=== PATIENT | female | born 1955 | race Hispanic/Latino ===

== ENCOUNTER 2018-02-20 15:44 | Inpatient (IN) | payer MEDICAID, OTHER ==
[2018-02-20 16:04] VITALS: BMI 19.8
--- NOTE | 2018-02-20 19:12 | ED PDOC ---
Arrival/HPI - General Historian: Patient, Family - History of Present Illness Narrative History of Present Illness (Text): 02/20/18 19:31 62 yo F with no pmhx presenting to ED with fevers/chills, muscle aches since Monday night. Patient states she has been spiking fevers throughout the weekend, with a Tmax of 102 F. Temperature recorded at home today per patient was 101. Patient complains of chills, generalized muscle aches, nausea and decreased appetite. Patient noted to have dry cough during exam, denies any sputum production. No headaches, dizziness, changes in vision, chest pain, palpitations, sob, abdominal pain, vomiting, diarrhea, constipation, dysuria, or changes in stool. PMhx: denies PSHx: denies Allergies: NKDA Home Medications: none Social Hx: no tobacco or drug use, social drinker FHx: noncontributory PMD: None <Rome Ruiz - Last Filed: 02/20/18 20:00> <Aditya Shelton - Last Filed: 02/20/18 23:05> - General Chief Complaint: Dizziness/Lightheaded Time Seen by Provider: 02/20/18 18:55 Past Medical History - Provider Review Nursing Documentation Reviewed: Yes - Infectious Disease Hx of Infectious Diseases: None - Psychiatric Hx Substance Use: No - Surgical History Hx Cataract Extraction: Yes <Rome Ruiz - Last Filed: 02/20/18 20:00> Family/Social History - Physician Review Nursing Documentation Reviewed: Yes Family/Social History: Unknown Family HX Smoking Status: Never Smoked Hx Alcohol Use: Yes Frequency of alcohol use: Socially Hx Substance Use: No <Rome Ruiz - Last Filed: 02/20/18 20:00> Allergies/Home Meds <Rome Ruiz - Last Filed: 02/20/18 20:00> <Aditya Shelton - Last Filed: 02/20/18 23:05> Allergies/Adverse Reactions: Allergies No Known Allergies Allergy (Verified 02/20/18 16:04) Home Medications: Home Meds Medication Instructions Recorded Confirmed No Known Home Med 02/20/18 02/20/18 Review of Systems - Review of Systems Constitutional: Fatigue, Fevers, Other (chills) Eyes: Normal ENT: Normal Respiratory: Normal, Cough (dry). absent: SOB, Sputum, Wheezing Cardiovascular: Normal. absent: Chest Pain, Palpitations, Edema, Calf Pain, SWANN, Syncope Gastrointestinal: Nausea, Appetite Changes (decreased appetite). absent: Abdominal Pain, Stool Changes, Constipation, Diarrhea, Vomiting Genitourinary Female: Normal. absent: Dysuria, Frequency, Hematuria, Urine Output Changes Musculoskeletal: Myalgias (generalized). absent: Arthralgias, Back Pain, Neck Pain, Joint Swelling Skin: Normal. absent: Rash, Pruritis, Skin Lesions, Abscess Neurological: Normal. absent: Headache, Dizziness, Focal Weakness, Gait Changes Endocrine: Normal Hemo/Lymphatic: Normal Psychiatric: Normal <Rome Ruiz - Last Filed: 02/20/18 20:00> Physical Exam Vital Signs Reviewed: Yes Vital Signs Temp Pulse Resp BP Pulse Ox 02/20/18 16:04 99.0 F 111 H 18 111/73 96 Temperature: Febrile Blood Pressure: Normal Pulse: Tachycardic Respiratory Rate: Normal Appearance: Positive for: Ill-Appearing, Other (chills) Pain Distress: None Mental Status: Positive for: Alert and Oriented X 3 - Systems Exam Head: Present: Atraumatic, Normocephalic Pupils: Present: PERRL Extroacular Muscles: Present: EOMI Conjunctiva: Present: Normal Mouth: Present: Moist Mucous Membranes Pharnyx: Present: Normal. No: ERYTHEMA, EXUDATE, TONSILS ENLARGED Neck: Present: Normal Range of Motion. No: Meningeal Signs, MIDLINE TENDERNESS, Paraspinal Tenderness Respiratory/Chest: Present: Clear to Auscultation. No: Respiratory Distress, Accessory Muscle Use, Wheezes, Rales, Rhonchi Cardiovascular: Present: Normal S1, S2, Tachycardic Abdomen: Present: Normal Bowel Sounds. No: Tenderness, Distention, Peritoneal Signs, Rebound, Mass/Organomegaly Back: Present: Normal Inspection Upper Extremity: Present: Normal Inspection, Normal ROM, NORMAL PULSES, Capillary Refill < 2s. No: Cyanosis, Edema, Tenderness, Swelling, Erythema Lower Extremity: Present: Normal Inspection, NORMAL PULSES, Normal ROM, Capillary Refill < 2 s. No: Edema, CALF TENDERNESS, Tenderness, Swelling, Erythema, Deformity Neurological: Present: CN II-XII Intact, Speech Normal Skin: Present: Warm, Dry, Normal Color. No: Rashes Psychiatric: Present: Alert, Oriented x 3, Normal Insight, Normal Concentration <Rome Ruiz - Last Filed: 02/20/18 20:00> Vital Signs Temp Pulse Resp BP Pulse Ox 02/20/18 19:13 103.5 F H 110 H 18 108/70 100 02/20/18 16:04 99.0 F 111 H 18 111/73 96 <Aditya Shelton - Last Filed: 02/20/18 23:05> Medical Decision Making ED Course and Treatment: 02/20/18 19:52 Impression: 62 yo F with no pmhx presenting to ED with fevers/chills, nausea, decreased appetite, dry cough x 4 days Plan: --CBC, CMP --trop --EKG --CXR --UA --tylenol --monitor and disposition 02/20/18 19:53 Patient with continuous chills on examination, decreased appetite Repeat temp: 103.5 rectal Pts meets SIRS criteria with increased temp and tachycardia UA positive CODE sepsis called, per Dr. Shelton - RAD Interpretation Radiology Orders: 02/20/18 19:06 CHEST PORTABLE [RAD] Stat - EKG Interpretation EKG Interpretation (Text): 02/20/18 19:56 Sinus tach @ 101 bpm, possible L atrial enlargement, no STEMI Interpreted by ED Physician: Yes Type: 12 lead EKG - Medication Orders Current Medication Orders: Acetaminophen (Tylenol 325mg Tab) 975 mg PO STAT STA Stop: 02/20/18 19:07 <Rome Ruiz - Last Filed: 02/20/18 20:00> ED Course and Treatment: 02/20/18 20:05 dry cough, RLL infiltrate on my exam +UA w/ LE + nitries sepsis, will rx appreciate consult w/ Hospitalist team: to be admitted to Dr. Harris: Dr. Peterson will see pt. Pt in NAD - Lab Interpretations Lab Results: Lab Results 02/20/18 19:31: Urine Color Light yellow, Urine Appearance Slight-cloudy, Urine pH 6.0, Ur Specific [place] 1.020, Urine Protein 100 H, Urine Glucose (UA) Negative, Urine Ketones Trace H, Urine Blood Moderate H, Urine Nitrate Positive H, Urine Bilirubin Negative, Urine Urobilinogen 0.2, Ur Leukocyte Esterase Small H, Urine RBC 1 - 3, Urine WBC 2 - 5, Ur Epithelial Cells 0 - 2, Urine Bacteria Mod - RAD Interpretation Radiology Orders: 02/20/18 19:06 CHEST PORTABLE [RAD] Stat - Medication Orders Current Medication Orders: Ceftriaxone Sodium (Rocephin 1 Gram Ivpb) 1 gm in 100 mls @ 200 mls/hr IVPB STAT STA; Protocol Stop: 02/20/18 20:15 Azithromycin (Zithromax 500mg In Ns) 500 mg in 250 mls @ 167 mls/hr IVPB STAT STA; Protocol Stop: 02/20/18 21:17 Discontinued Medications Acetaminophen (Tylenol 325mg Tab) 975 mg PO STAT STA Stop: 02/20/18 19:07 <Aditya Shelton - Last Filed: 02/20/18 23:05> Disposition/Present on Arrival - Present on Arrival History of DVT/PE: No History of Uncontrolled Diabetes: No Urinary Catheter: No History of Decub. Ulcer: No History Surgical Site Infection Following: None <Rome Ruiz - Last Filed: 02/20/18 20:00> - Present on Arrival Any Indicators Present on Arrival: No - Disposition Have Diagnosis and Disposition been Completed?: Yes Disposition Time: 20:54 <Aditya Shelton - Last Filed: 02/20/18 23:05> - Disposition Diagnosis: Pneumonia Disposition: HOSPITALIZED Patient Problems: Current Active Problems Problem Status Onset Pneumonia Acute Condition: GOOD
[2018-02-20 19:45] LABS: URINE BILIRUBIN NEGATIVE (NEGATIVE); URINE BLOOD MODERATE (NEGATIVE); URINE GLUCOSE (UA) NEGATIVE (NEGATIVE); URINE LEUKOCYTE ESTERASE SMALL Leu/uL (NEGATIVE); URINE PROTEIN 100 mg/dL (<30 mg/dL); URINE UROBILINOGEN 0.2 E.U./dL (<1 E.U./dL)
[2018-02-20 19:46] LABS: URINE APPEARANCE SLIGHT-CLOUDY (CLEAR); URINE COLOR LIGHT YELLOW (YELLOW)
[2018-02-20] MEDS ORDERED: cefTRIAXone 1 gm 1 GM/100 ML BAG IVPB STA (19:46)
[2018-02-20] MEDS ORDERED: Azithromycin 500MG/NS 250ml 500 MG/250 ML BAG IVPB STA (19:48)
[2018-02-20 20:02] LABS: URINE BACTERIA MOD (NEG); URINE EPITHELIAL CELLS 0 - 2 /hpf (0-5)
[2018-02-20 20:10] LABS: VENOUS BLOOD GAS BASE EXCESS 2.6 mmol/L (0.0-2.0); VENOUS BLOOD GAS PO2 30 mm/Hg (30-55); VENOUS BLOOD PH 7.43 (7.32-7.43)
[2018-02-20 20:13] LABS: BASO # 0.01 K/mm3 (0.0-2.0); BASO % 0.1 % (0.0-3.0); GRAN % 87.1 % (50.0-68.0); LYMPH # 0.5 (1.2-3.4); LYMPH % 3.6 % (22.0-35.0); MEAN CELL VOLUME 91.5 fl (80.0-105.0); MEAN CORPUSCULAR HEMOGLOBIN 31.6 pg (25.0-35.0); MEAN CORPUSCULAR HGB CONC 34.6 g/dl (31.0-37.0); MEAN PLATELET VOLUME 9.6 fl (7.0-11.0); MONO # 1.2 (0.1-0.6); MONO % 9.2 % (1.0-6.0); PLATELET COUNT 217 10^3/uL (120.0-450.0); RBC 4.11 10^6/uL (3.5-6.1); RED CELL DISTRIBUTION WIDTH 12.8 % (11.5-14.5); WHITE BLOOD COUNT 12.9 10^3/ul (4.5-11.0)
[2018-02-20 20:23] LABS: ALB/GLOB RATIO 1.1 (1.1-1.8); ALBUMIN 3.6 g/dL (3.0-4.8); ALT/SGPT 24 U/L (7-56); AST/SGOT 25 U/L (14-36); BLOOD UREA NITROGEN 21 mg/dL (7-21); CALCIUM 8.9 mg/dL (8.4-10.5); GFR NON-AFRICAN AMERICAN 56
[2018-02-20 20:24] LABS: INR 1.08; PARTIAL THROMBOPLASTIN TIME 27.5 Seconds (25.1-36.5); PROTHROMBIN TIME 12.3 SECONDS (9.4-12.5)
[2018-02-20 20:34] LABS: TROPONIN I < 0.01 ng/mL
--- NOTE | 2018-02-20 20:50 | CP.PCM.HP ---
<Gino Silverman - Last Filed: 02/21/18 01:06> History of Present Illness - History of Present Illness History of Present Illness: Gino Silverman, PGy-1 History and Physical for Hospitalist Service CC: Fever and Dizziness HPI: Ms. Sharp is a 62 year old female with PMHx significant for bout of pneumonia 15 years ago at another institution (patient unaware of etiology or treatment at the time) who presents with 3 days of paroxysmal fevers. Patient reports that she has had recurring fevers along with chills since Monday evening and has taken Advil which has helped for a short period of time. Patient also reports associated headache and cough with clear phlegm production at times. Patient denies having received flu shot. Had one episode of bilious vomiting over the weekend that has not returned. Patient denies vision changes but states that she has felt unsteady while ambulating since Monday along with a poor appetite. Patient states she typically has hypotension and thought these symptoms could have been related, thereby delaying her visit to the ED. Patient denies chest pain, abdominal pain, recent travel, rashes, sick contacts and weight changes. Patient takes no medications regularly. 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 Past Patient History - Infectious Disease Hx of Infectious Diseases: None - Past Social History Smoking Status: Never Smoked - PSYCHIATRIC Hx Substance Use: No - SURGICAL HISTORY Hx Cataract Extraction: Yes Meds Allergies/Adverse Reactions: Allergies Allergy/AdvReac Type Severity Reaction Status Date / Time No Known Allergies Allergy Verified 02/20/18 16:04 Physical Exam - Constitutional Appears: Non-toxic, In Acute Distress - Head Exam Head Exam: ATRAUMATIC, NORMOCEPHALIC - Eye Exam Eye Exam: EOMI, Normal appearance Pupil Exam: PERRL - ENT Exam ENT Exam: Mucous Membranes Dry - Neck Exam Neck exam: Positive for: Full Rom, Normal Inspection. Negative for: Tenderness, Thyromegaly Additional comments: negative Brudzinski's sign - Respiratory Exam Respiratory Exam: Clear to Auscultation Bilateral, NORMAL BREATHING PATTERN. absent: Rales, Rhonchi, Wheezes - Cardiovascular Exam Cardiovascular Exam: RRR, +S1, +S2 - GI/Abdominal Exam GI & Abdominal Exam: Normal Bowel Sounds, Soft. absent: Distended, Guarding, Rebound, Tenderness - Extremities Exam Extremities exam: Positive for: full ROM, normal capillary refill, pedal pulses present. Negative for: calf tenderness, joint swelling - Back Exam Back exam: NORMAL INSPECTION. absent: paraspinal tenderness, vertebral tenderness - Neurological Exam Neurological exam: Abnormal Gait, Alert, CN II-XII Intact, Oriented x3 - Psychiatric Exam Psychiatric exam: Normal Affect, Normal Mood - Skin Skin Exam: Dry, Intact, Warm Results - Vital Signs Recent Vital Signs: Last Vital Signs Temp 103.5 F H 02/20/18 19:13 Pulse 110 H 02/20/18 19:13 Resp 18 02/20/18 19:13 BP 108/70 02/20/18 19:13 Pulse Ox 100 02/20/18 19:13 - Labs Result Diagrams: 02/20/18 19:55 02/20/18 19:55 Labs: Laboratory Results - last 24 hr 02/20/18 02/20/18 02/20/18 19:31 19:55 19:55 WBC 12.9 H RBC 4.11 Hgb 13.0 Hct 37.6 MCV 91.5 MCH 31.6 MCHC 34.6 RDW 12.8 Plt Count 217 MPV 9.6 Gran % 87.1 H Lymph % (Auto) 3.6 L [place] % (Auto) 9.2 H Eos % (Auto) 0.0 L Baso % (Auto) 0.1 Gran # 11.20 H Lymph # (Auto) 0.5 L [place] # (Auto) 1.2 H Eos # (Auto) 0.0 Baso # (Auto) 0.01 PT INR APTT pO2 VBG pH VBG pCO2 VBG HCO3 VBG Total CO2 VBG O2 Sat (Calc) VBG Base Excess VBG Potassium Glucose Lactate FiO2 Sodium 132 Potassium 3.8 Chloride 96 L Carbon Dioxide 28 Anion Gap 13 BUN 21 Creatinine 1.0 Est GFR ( Amer) > 60 Est GFR (Non-Af Amer) 56 Random Glucose 111 H Calcium 8.9 Phosphorus 1.8 L Magnesium 2.3 H Total Bilirubin 0.8 AST 25 ALT 24 Alkaline Phosphatase 81 Troponin I < 0.01 Total Protein 6.9 Albumin 3.6 Globulin 3.3 Albumin/Globulin Ratio 1.1 Venous Blood Potassium Urine Color Light yellow Urine Appearance Slight-cloudy Urine pH 6.0 Ur Specific [place] 1.020 Urine Protein 100 H Urine Glucose (UA) Negative Urine Ketones Trace H Urine Blood Moderate H Urine Nitrate Positive H Urine Bilirubin Negative Urine Urobilinogen 0.2 Ur Leukocyte Esterase Small H Urine RBC 1 - 3 Urine WBC 2 - 5 Ur Epithelial Cells 0 - 2 Urine Bacteria Mod 02/20/18 02/20/18 19:55 20:00 WBC RBC Hgb Hct MCV MCH MCHC RDW Plt Count MPV Gran % Lymph % (Auto) [place] % (Auto) Eos % (Auto) Baso % (Auto) Gran # Lymph # (Auto) [place] # (Auto) Eos # (Auto) Baso # (Auto) PT 12.3 INR 1.08 APTT 27.5 pO2 30 VBG pH 7.43 VBG pCO2 41.0 VBG HCO3 27.2 VBG Total CO2 28.5 H VBG O2 Sat (Calc) 65.3 H VBG Base Excess 2.6 H VBG Potassium 3.8 Glucose 111 H Lactate 1.3 FiO2 21.0 Sodium 131.0 L Potassium Chloride 99.0 Carbon Dioxide Anion Gap BUN Creatinine Est GFR ( Amer) Est GFR (Non-Af Amer) Random Glucose Calcium Phosphorus Magnesium Total Bilirubin AST ALT Alkaline Phosphatase Troponin I Total Protein Albumin Globulin Albumin/Globulin Ratio Venous Blood Potassium 3.8 Urine Color Urine Appearance Urine pH Ur Specific [place] Urine Protein Urine Glucose (UA) Urine Ketones Urine Blood Urine Nitrate Urine Bilirubin Urine Urobilinogen Ur Leukocyte Esterase Urine RBC Urine WBC Ur Epithelial Cells Urine Bacteria Assessment & Plan - Assessment and Plan (Free Text) Assessment: Assessment: 52 year old female with previous hx of PNA 15 years ago who presents for paroxysmal fevers, dizziness and unsteady gait. Sepsis, Fever of unknown origin 2/2 Infection of Unknown Etiology: UTI vs PNA vs Flu vs Strep vs abdominal abscess 103.5 temp, tachycardia @ 111 bpm WBC 12.9, 3% bands, Lactate 1.3 EKG Sinus tachycardia @101 bpm, possible L atrial enlargement, no ST or T wave changes Doubt meningitis due to lack of nuchal rigidity CXR findings suggestive of RLL infiltrate, f/u final read F/U CT abdomen/pelvis w/o contrast UA + protein, blood nitrates and leuk esterase but no dysuria, frequency or urgency noted by patient F/U blood and urine cxs ID consult - Dr. Ayala - recommendations appreciated telemonitoring, VS q4 NS @ 150 cc/hr Ceftriaxone 1g IVPB and Azithromycin 500 mg IVPB daily Panculture f/u VBG shock panel f/u AM CBC, CMP, Mg, Phos ID consult- Dr. Ayala for sepsis source coverage Cough F/U influenza AB, mycoplasma, and strep pneumo urine antigen f/u procal Robitussin 200 mg PO TID GI DVT PPx Heparin 5000 SC q8 Protonix 40 mg PO Patient seen, case reviewed and plan approved by attending, Dr. Peterson. Gino Silverman PGY-1 <Viri Peterson - Last Filed: 02/21/18 04:09> Results - Vital Signs Recent Vital Signs: Last Vital Signs Temp 97.0 F L 02/21/18 01:29 Pulse 96 H 02/21/18 02:00 Resp 20 02/21/18 01:29 BP 87/58 L 02/21/18 01:29 Pulse Ox 97 02/21/18 01:29 - Labs Result Diagrams: 02/20/18 19:55 02/20/18 19:55 Labs: Laboratory Results - last 24 hr 02/20/18 02/20/18 02/20/18 19:31 19:55 19:55 WBC 12.9 H RBC 4.11 Hgb 13.0 Hct 37.6 MCV 91.5 MCH 31.6 MCHC 34.6 RDW 12.8 Plt Count 217 MPV 9.6 Gran % 87.1 H Lymph % (Auto) 3.6 L [place] % (Auto) 9.2 H Eos % (Auto) 0.0 L Baso % (Auto) 0.1 Gran # 11.20 H Lymph # (Auto) 0.5 L [place] # (Auto) 1.2 H Eos # (Auto) 0.0 Baso # (Auto) 0.01 Neutrophils % (Manual) 82 H Band Neutrophils % 3 H Lymphocytes % (Manual) 6 L Monocytes % (Manual) 9 H Platelet Evaluation Normal Tear Drop Cells Slight PT INR APTT pO2 VBG pH VBG pCO2 VBG HCO3 VBG Total CO2 VBG O2 Sat (Calc) VBG Base Excess VBG Potassium Glucose Lactate FiO2 Sodium 132 Potassium 3.8 Chloride 96 L Carbon Dioxide 28 Anion Gap 13 BUN 21 Creatinine 1.0 Est GFR ( Amer) > 60 Est GFR (Non-Af Amer) 56 Random Glucose 111 H Calcium 8.9 Phosphorus 1.8 L Magnesium 2.3 H Total Bilirubin 0.8 AST 25 ALT 24 Alkaline Phosphatase 81 Troponin I < 0.01 Total Protein 6.9 Albumin 3.6 Globulin 3.3 Albumin/Globulin Ratio 1.1 Venous Blood Potassium Urine Color Light yellow Urine Appearance Slight-cloudy Urine pH 6.0 Ur Specific [place] 1.020 Urine Protein 100 H Urine Glucose (UA) Negative Urine Ketones Trace H Urine Blood Moderate H Urine Nitrate Positive H Urine Bilirubin Negative Urine Urobilinogen 0.2 Ur Leukocyte Esterase Small H Urine RBC 1 - 3 Urine WBC 2 - 5 Ur Epithelial Cells 0 - 2 Urine Bacteria Mod Influenza Typ A,B (EIA) 02/20/18 02/20/18 02/21/18 19:55 20:00 00:57 WBC RBC Hgb Hct MCV MCH MCHC RDW Plt Count MPV Gran % Lymph % (Auto) [place] % (Auto) Eos % (Auto) Baso % (Auto) Gran # Lymph # (Auto) [place] # (Auto) Eos # (Auto) Baso # (Auto) Neutrophils % (Manual) Band Neutrophils % Lymphocytes % (Manual) Monocytes % (Manual) Platelet Evaluation Tear Drop Cells PT 12.3 INR 1.08 APTT 27.5 pO2 30 VBG pH 7.43 VBG pCO2 41.0 VBG HCO3 27.2 VBG Total CO2 28.5 H VBG O2 Sat (Calc) 65.3 H VBG Base Excess 2.6 H VBG Potassium 3.8 Glucose 111 H Lactate 1.3 FiO2 21.0 Sodium 131.0 L Potassium Chloride 99.0 Carbon Dioxide Anion Gap BUN Creatinine Est GFR ( Amer) Est GFR (Non-Af Amer) Random Glucose Calcium Phosphorus Magnesium Total Bilirubin AST ALT Alkaline Phosphatase Troponin I Total Protein Albumin Globulin Albumin/Globulin Ratio Venous Blood Potassium 3.8 Urine Color Urine Appearance Urine pH Ur Specific [place] Urine Protein Urine Glucose (UA) Urine Ketones Urine Blood Urine Nitrate Urine Bilirubin Urine Urobilinogen Ur Leukocyte Esterase Urine RBC Urine WBC Ur Epithelial Cells Urine Bacteria Influenza Typ A,B (EIA) Negative for flu a/b 02/21/18 02:00 WBC RBC Hgb Hct MCV MCH MCHC RDW Plt Count MPV Gran % Lymph % (Auto) [place] % (Auto) Eos % (Auto) Baso % (Auto) Gran # Lymph # (Auto) [place] # (Auto) Eos # (Auto) Baso # (Auto) Neutrophils % (Manual) Band Neutrophils % Lymphocytes % (Manual) Monocytes % (Manual) Platelet Evaluation Tear Drop Cells PT INR APTT pO2 48 VBG pH 7.33 VBG pCO2 45.0 VBG HCO3 23.7 VBG Total CO2 25.1 VBG O2 Sat (Calc) 85.6 H VBG Base Excess -2.4 L VBG Potassium 3.3 L Glucose 153 H Lactate 0.9 FiO2 21.0 Sodium 136.0 Potassium Chloride 110.0 H Carbon Dioxide Anion Gap BUN Creatinine Est GFR ( Amer) Est GFR (Non-Af Amer) Random Glucose Calcium Phosphorus Magnesium Total Bilirubin AST ALT Alkaline Phosphatase Troponin I Total Protein Albumin Globulin Albumin/Globulin Ratio Venous Blood Potassium 3.3 L Urine Color Urine Appearance Urine pH Ur Specific [place] Urine Protein Urine Glucose (UA) Urine Ketones Urine Blood Urine Nitrate Urine Bilirubin Urine Urobilinogen Ur Leukocyte Esterase Urine RBC Urine WBC Ur Epithelial Cells Urine Bacteria Influenza Typ A,B (EIA) Attending/Attestation - Attestation I have personally seen and examined this patient.: Yes I have fully participated in the care of the patient.: Yes I have reviewed all pertinent clinical information: Yes Notes (Text): 02/21/18 03:45 Pt stated her BP is usually on the lower side. Pt seen with resident by bedside. Case discussed in detail. Agree with documentation,physical findings,assessment and plan of treatment. 02/21/18 04:07
[2018-02-20 20:58] LABS: BAND 3 % (0-2); LYMPHOCYTE 6 % (22.0-35.0); MONOCYTE 9 % (1.0-6.0); NEUTROPHIL 82 % (50.0-70.0)
[2018-02-20 20:59] LABS: PLATELET ESTIMATE NORMAL (NORMAL); TEAR DROP CELLS SLIGHT
[2018-02-20] MEDS ORDERED: Sodium Chloride 0.9% 1,000 ML IV STA (21:01)
[2018-02-20] MEDS ORDERED: Sodium Chloride 0.9% 1,000 ML IV SCH (21:15)
--- NOTE | 2018-02-20 23:17 | CARD ---
APPROVED REPORT Date of service: 02/20/2018 EKG Measurement Heart [id number] <Conclusion> Sinus tachycardia Possible Left atrial enlargement Borderline ECG
--- NOTE | 2018-02-21 01:06 | PCM.SEPTIC ---
<Gino Silverman - Last Filed: 02/21/18 02:14> Sepsis Progress Note - Reassessment Type Date of Evaluation: 02/21/18 Time of Evaluation: 01:05 Reassessment Type: Non-invasive reassessment - Non Invasive Reassessment Were the most recent vital sign reviewed: Yes Vital Sign (Latest): Temp Pulse Resp BP Pulse Ox 99.1 F 96 H 18 100/71 100 02/20/18 23:26 02/21/18 00:17 02/21/18 00:17 02/21/18 00:17 02/21/18 00:17 Cardiovascular: Yes: Regular Rate, Rhythm, Chest Non Tender. No: JVD, Tachycardia, Friction Rub Respiratory: Yes: Normal Breath Sounds, Decreased Breath Sounds, Rales (RLL). No: Accessory Muscle Use, Crackles, Respiratory Distress Capillary Refill: Normal (Less than 2 sec) Skin: Normal Color, Warm, Dry <Viri Peterson - Last Filed: 02/21/18 10:33> Sepsis Progress Note - Non Invasive Reassessment Vital Sign (Latest): Temp Pulse Resp BP Pulse Ox 97.0 F L 96 H 20 87/58 L 97 02/21/18 01:29 02/21/18 02:00 02/21/18 01:29 02/21/18 01:29 02/21/18 01:29 Attending/Attestation - Attestation I have personally seen and examined this patient.: Yes I have fully participated in the care of the patient.: Yes I have reviewed all pertinent clinical information, including history, physical exam and plan: Yes Notes (Text): 02/21/18 03:03 Pt seen with the resident. Discussed findings in detail. Agree with findings.
[2018-02-21] MEDS ORDERED: Pneumococcal 23-Valent Vaccine IM ONE (01:53)
[2018-02-21] MEDS ORDERED: Influenza Vaccine 60 mcg/0.5 mL SYR (4YR UP) IM ONE (01:53)
[2018-02-21 02:26] LABS: VENOUS BLOOD GAS BASE EXCESS -2.4 mmol/L (0.0-2.0); VENOUS BLOOD GAS PO2 48 mm/Hg (30-55); VENOUS BLOOD PH 7.33 (7.32-7.43)
[2018-02-21] MEDS: Pantoprazole 40 mg EC Tab PO SCH (05:35)
[2018-02-21 06:23] LABS: BASO # 0.01 K/mm3 (0.0-2.0); BASO % 0.1 % (0.0-3.0); GRAN # 8.63 (1.4-6.5); GRAN % 86.2 % (50.0-68.0); LYMPH # 0.7 (1.2-3.4); LYMPH % 6.6 % (22.0-35.0); MEAN CELL VOLUME 91.8 fl (80.0-105.0); MEAN CORPUSCULAR HEMOGLOBIN 31.8 pg (25.0-35.0); MEAN CORPUSCULAR HGB CONC 34.6 g/dl (31.0-37.0); MEAN PLATELET VOLUME 10.1 fl (7.0-11.0); MONO # 0.7 (0.1-0.6); MONO % 7.1 % (1.0-6.0); RBC 3.43 10^6/uL (3.5-6.1)
[2018-02-21 06:28] LABS: HEMOGLOBIN 10.9 g/dL (12.0-16.0)
[2018-02-21 07:13] LABS: ALBUMIN 2.9 g/dL (3.0-4.8); ALT/SGPT 28 U/L (7-56); AST/SGOT 34 U/L (14-36); BLOOD UREA NITROGEN 16 mg/dL (7-21); CALCIUM 7.9 mg/dL (8.4-10.5); GFR NON-AFRICAN AMERICAN > 60
[2018-02-21] MEDS ORDERED: Sodium Phosphate 15 MMOLE in Sodium Chloride 0.9% 250 ML IVPB ONE (08:23)
[2018-02-21] MEDS: cefTRIAXone 1 gm 1 GM/100 ML BAG IVPB SCH (09:01)
--- NOTE | 2018-02-21 09:50 | RAD ---
Date of service: 02/20/2018 HISTORY: fevers, r/o focal infection COMPARISON: No prior. FINDINGS: LUNGS: No active pulmonary disease. PLEURA: No significant pleural effusion identified, no pneumothorax apparent. CARDIOVASCULAR: Normal. OSSEOUS STRUCTURES: No significant abnormalities. VISUALIZED UPPER ABDOMEN: Normal. OTHER FINDINGS: None. IMPRESSION: No active disease.
[2018-02-21] MEDS: guaiFENesin 200 mg/10 ml Syrup UD PO SCH ×3 (09:57→17:11)
--- NOTE | 2018-02-21 10:13 | CT ---
Date of service: 02/21/2018 PROCEDURE: CT Chest without contrast HISTORY: r/o pneumonia COMPARISON: None available. TECHNIQUE: Contiguous axial images were obtained through the chest without intravenous contrast enhancement. Sagittal and coronal reconstructions were performed. Radiation dose: Total exam DLP = 166.49 mGy-cm. This CT exam was performed using one or more of the following dose reduction techniques: Automated exposure control, adjustment of the mA and/or kV according to patient size, and/or use of iterative reconstruction technique. FINDINGS: LUNGS: Minimal bibasilar atelectasis. No evidence of pneumonia. MEDIASTINUM: Unremarkable thoracic aorta. No aneurysm. Normal sized heart. Main pulmonary artery unremarkable. No vascular congestion. No lymphadenopathy. No atherosclerotic calcification or mural plaque present. PLEURA: No pleural fluid. No pneumothorax. BONES: No fracture. No destructive lesion. UPPER ABDOMEN: Grossly unremarkable. OTHER FINDINGS: Minimal aortic and coronary artery calcifications IMPRESSION: No acute findings
--- NOTE | 2018-02-21 10:34 | CT ---
Date of service: 02/21/2018 PROCEDURE: CT Abdomen and Pelvis without intravenous contrast HISTORY: Recurring fevers COMPARISON: February 21, 2018 CT thorax TECHNIQUE: Unenhanced. Neither IV nor oral contrast administered Radiation dose: Total exam DLP = 210.93 mGy-cm. This CT exam was performed using one or more of the following dose reduction techniques: Automated exposure control, adjustment of the mA and/or kV according to patient size, and/or use of iterative reconstruction technique. FINDINGS: LOWER THORAX: Unremarkable. LIVER: Unremarkable. No gross lesion or ductal dilatation. GALLBLADDER AND BILE DUCTS: Unremarkable. PANCREAS: Unremarkable. No gross lesion or ductal dilatation. SPLEEN: Unremarkable. ADRENALS: Unremarkable. No mass. KIDNEYS AND URETERS: Unremarkable. No hydronephrosis. No solid mass. VASCULATURE: Unremarkable. No aortic aneurysm. BOWEL: Unremarkable. No obstruction. No gross mural thickening. APPENDIX: Unremarkable. Normal appendix. PERITONEUM: Unremarkable. No free fluid. No free air. LYMPH NODES: Unremarkable. No enlarged lymph nodes. BLADDER: Unremarkable. REPRODUCTIVE: Unremarkable. BONES: No acute fracture. OTHER FINDINGS: None. IMPRESSION: No significant or acute findings to account for/ related to the clinical presentation. Concordant results (preliminary interpretation) provided by [employer]. Procedure Completed: 01:19. Preliminary Report: Dictated and Authenticated: 02:43. Final Interpretation: 10:30. February 21, 2018
[2018-02-21] MEDS: Azithromycin 500MG/NS 250ml 500 MG/250 ML BAG IVPB SCH (11:07)
[2018-02-21] MEDS ORDERED: Potassium Phosphate 3 mmol/ml Inj IV ONE (13:46)
[2018-02-21] MEDS ORDERED: Potassium Phosphate 30 MMOLE in Sodium Chloride 0.9% 250 ML IVPB ONE (14:00)
--- NOTE | 2018-02-21 15:01 | CP.PCM.PN ---
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 seen and examined at bedside this AM No acute events reported ovenright. She is complaining of headaches and dizziness at time of exam; does not voice any difficulty breathing, chest pain, abd pain, nvdc, dysuria /burning/ retention. Remainder of 12 system ROS is negative at this time. Objective - Vital Signs/Intake and Output Vital Signs (last 24 hours): Temp Pulse Resp BP Pulse Ox 99.0 F 114 H 20 112/75 96 02/21/18 04:00 02/21/18 04:00 02/21/18 04:00 02/21/18 04:00 02/21/18 04:00 Intake and Output: 02/21/18 02/21/18 06:59 18:59 Intake Total 320 Output Total 2 Balance 318 - Medications Medications: Current Medications Acetaminophen (Tylenol 325mg Tab) 650 mg PO Q6H PRN PRN Reason: Fever >100.4 F Last Admin: 02/21/18 09:02 Dose: 650 mg Guaifenesin (Robitussin) 200 mg PO TID NORMA Last Admin: 02/21/18 09:57 Dose: 200 mg Heparin Sodium (Porcine) (Heparin) 5,000 units SC Q8 [facility]; Protocol Last Admin: 02/21/18 05:34 Dose: 5,000 units Sodium Chloride (Sodium Chloride 0.9%) 1,000 mls @ 150 mls/hr IV .Q6H40M NORMA Ceftriaxone Sodium (Rocephin 1 Gram Ivpb) 1 gm in 100 mls @ 100 mls/hr IVPB DAILY [facility]; Protocol Last Admin: 02/21/18 09:01 Dose: 100 mls/hr Azithromycin (Zithromax 500mg In Ns) 500 mg in 250 mls @ 167 mls/hr IVPB DAILY [facility]; Protocol Last Admin: 02/21/18 11:07 Dose: 167 mls/hr Potassium Phosphate 30 mmole/ (Sodium Chloride) 260 mls @ 42.5 mls/hr IVPB ONCE ONE Stop: 02/21/18 20:07 Pantoprazole Sodium (Protonix Ec Tab) 40 mg PO 0600 NORMA Last Admin: 02/21/18 05:35 Dose: 40 mg - Labs Labs: 02/21/18 05:30 02/21/18 05:20 PT 12.3 SECONDS (9.4-12.5) 02/20/18 19:55 INR 1.08 02/20/18 19:55 APTT 27.5 Seconds (25.1-36.5) 02/20/18 19:55 - Constitutional Appears: Well, Non-toxic, No Acute Distress - Head Exam Head Exam: ATRAUMATIC, NORMAL INSPECTION, NORMOCEPHALIC - Eye Exam Eye Exam: EOMI, Normal appearance, PERRL. absent: Scleral icterus - ENT Exam ENT Exam: Mucous Membranes Moist, Normal Exam - Respiratory Exam Respiratory Exam: Decreased Breath Sounds (Very mild/minimal ), Rales, NORMAL BREATHING PATTERN - Cardiovascular Exam Cardiovascular Exam: REGULAR RHYTHM, RRR, +S1, +S2. absent: Murmur - GI/Abdominal Exam GI & Abdominal Exam: Soft, Normal Bowel Sounds. absent: Tenderness Additional comments: No suprapubic tenderness presentation - Exam Exam: absent: Bladder Distension - Extremities Exam Extremities Exam: Normal Capillary Refill. absent: Pedal Edema, Tenderness - Neurological Exam Neurological Exam: Alert, Awake, CN II-XII Intact, Oriented x3 - Psychiatric Exam Psychiatric exam: Normal Affect, Normal Mood - Skin Skin Exam: Intact, Normal Color, Warm. absent: Dry Assessment and Plan - Assessment and Plan (Free Text) Assessment: 62F presented [place] [facility] [place] w/ CC of F+Chills found to have Tmax 103, and Hr 111 admitted for workup/management of sepsis w/ fever of unknown origin. At this time the patient has tolerated IVF well and states some improvement relative to initial presentation. Source of infection still pending at this time; we will treat the patient empirically and monitor for worsening of s/s of infection. SEPSIS + Fever Unknown Origin; Etiology unknown - UTI vs PNA most likely; Abdominal Abscess less likely. Afebrile overnight w/ resolving leukocytosis; Lactate wnl UA: Moderate bacteria, w/ 2-5 leukocytes, Nitrate+ UCX pending CXR: wnl; CT Chest as interpreted at - some consolidation Procal Elevated Flu negative CTAP: No acute findings HIV negative, Urine AGs pending Cultures: Blood, urine, sputum pending Azithromycin, Rocephin ID Dr. Lutz on board, appreciate reccs Cough F/U influenza AB, mycoplasma, and strep pneumo urine antigen f/u procal Robitussin 200 mg PO TID GI DVT PPx Heparin 5000 SC q8 Protonix 40 mg PO Patient was seen, examined, and discussed w/ attending physician Dr. Harris. Willie Payton DO PGY1 Internal Medicine <Madison Harris - Last Filed: 02/23/18 15:10> Objective - Vital Signs/Intake and Output Vital Signs (last 24 hours): Temp Pulse Resp BP Pulse Ox 97.8 F 60 20 100/69 96 02/23/18 06:00 02/23/18 06:00 02/23/18 06:00 02/23/18 06:00 02/23/18 06:00 Intake and Output: 02/23/18 02/23/18 06:59 18:59 Intake Total 240 Balance 240 - Medications Medications: Current Medications Acetaminophen (Tylenol 325mg Tab) 650 mg PO Q6H PRN PRN Reason: Fever >100.4 F Last Admin: 02/21/18 19:23 Dose: 650 mg Alprazolam (Xanax) 0.5 mg PO Q12H PRN; Protocol PRN Reason: Anxiety Last Admin: 02/22/18 13:58 Dose: 0.5 mg Diphenhydramine HCl (Benadryl) 25 mg PO HS PRN PRN Reason: Insomnia Last Admin: 02/22/18 23:58 Dose: 25 mg Guaifenesin (Robitussin) 200 mg PO TID NORMA Last Admin: 02/22/18 17:38 Dose: 200 mg Heparin Sodium (Porcine) (Heparin) 5,000 units SC Q8 [facility]; Protocol Last Admin: 02/23/18 05:22 Dose: 5,000 units Levofloxacin (Levaquin) 500 mg PO DAILY [facility]; Protocol Stop: 02/28/18 10:01 Pantoprazole Sodium (Protonix Ec Tab) 40 mg PO 0600 NORMA Last Admin: 02/23/18 05:22 Dose: 40 mg - Labs Labs: 02/23/18 06:30 02/23/18 06:30 PT 12.3 SECONDS (9.4-12.5) 02/20/18 19:55 INR 1.08 02/20/18 19:55 APTT 27.5 Seconds (25.1-36.5) 02/20/18 19:55 Attending/Attestation - Attestation I have personally seen and examined this patient.: Yes I have fully participated in the care of the patient.: Yes I have reviewed all pertinent clinical information, including history, physical exam and plan: Yes Notes (Text): Attending note; Patient is examined with resident. Patient is alert and awake. Had low-grade temperature last night. Currently afebrile and nontoxic. Complaining of mild cough. Tolerating diet well. Patient is a 62-year-old female with no significant past medical history is admitted with fevers and chills. Patient is complaining of generalized malaise and cough. 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 Rapid flu is negative. Chest x-rays negative. Started on IV levofloxacin. Marie culture ordered., ID evaluation appreciated. Monitor closely for fever trend. Ambulating as needed. Patient will be referred [place] [facility] [place] upon discharge.
[2018-02-21] MEDS: Sodium Chloride 0.9% 1,000 ML IV SCH ×4 (18:05→19:18)
[2018-02-21] MEDS: DiphenhydrAMINE 12.5 mg/5 ml LIQ UD (5 ml) PO PRN (21:20)
--- NOTE | 2018-02-21 22:05 | CON ---
DATE: 02/21/2018 The patient is in seen earlier today in room 262, bed 1. CHIEF COMPLAINT: Fever x3 days. HISTORY OF PRESENT ILLNESS: This is a 62-year-old female with no significant past medical history. She states that she has been having fevers x3 days. She has had cough. The cough is nonproductive. There is no chest pain. There is mild shortness of breath. No abdominal pain. No diarrhea. No constipation. No dysuria or frequency. No headaches or blurred vision. No neck pain. No rash or joint pain. REVIEW OF SYSTEMS: A 12-point review systems performed. PAST MEDICAL HISTORY: Noncontributory. PAST SURGICAL HISTORY: Significant for a cataract surgery. ALLERGIES: SHE HAS NO KNOWN ALLERGIES. She takes no medications at home. She lives by herself, has no pets, and her last travel was [facility] one year ago for her daughter's wedding. She is from her . No one else is sick around her. 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 She is exposed to children. PHYSICAL EXAMINATION: On examination, she is in bed, awake, answering questions appropriately. Her temperature is 103.5, a heart rate of 114, respiratory rate of 20, blood pressure is 87/58. Examination of HEENT is unremarkable. Neck is supple. Lungs have decreased breath sounds. Heart exam, normal S1, S2. Abdomen examination is soft, nontender. No rebound or guarding. Laboratory examination reveals a white count of 12,900, platelets of 217, 87 granulocytosis. There is 3% bandemia, 9% monocytosis. Coagulation is noted. Chemistries reveals a BUN of 16, creatinine of 0.8. Random glucose is 111. Urinalysis, wbc's 2 to 5, moderate bacteria, there is protein. Serology for influenza negative. The patient had a CAT scan of the abdomen and pelvis, that is pending. Chest x-ray which is pending, however, a review of the x-ray appears to have infiltrates. ASSESSMENT AND PLAN: This is a 62-year-old female with no significant past medical history, presenting with hypotension, fevers, tachycardia, and with severe sepsis, bilateral community-acquired pneumonia. We will treat the patient with ceftriaxone and Zithromax, QTC is 433, and we will order a procalcitonin, blood culture, urine cultures, sputum cultures, MRSA screen, HIV test, urine for Legionella antigen, Strep antigen, and CAT scan of the chest. We will check on her chest x-ray and initial diagnostic and laboratory testing, and make further recommendations. Jayson Lutz MD [facility] # [id number]
[2018-02-21] MEDS ORDERED: Sodium Chloride 0.9% 500 ML IV STA (23:01)
[2018-02-22 01:16] LABS: VENOUS BLOOD GAS BASE EXCESS -1.5 mmol/L (0.0-2.0); VENOUS BLOOD GAS PO2 31 mm/Hg (30-55); VENOUS BLOOD PH 7.37 (7.32-7.43)
[2018-02-22] MEDS: Pantoprazole 40 mg EC Tab PO SCH (05:27)
[2018-02-22 06:55] LABS: BASO # 0.01 K/mm3 (0.0-2.0); BASO % 0.1 % (0.0-3.0); EOS % 0.1 % (1.5-5.0); GRAN # 5.42 (1.4-6.5); GRAN % 73.3 % (50.0-68.0); LYMPH # 1.2 (1.2-3.4); LYMPH % 16.6 % (22.0-35.0); MEAN CELL VOLUME 92.3 fl (80.0-105.0); MEAN CORPUSCULAR HGB CONC 33.6 g/dl (31.0-37.0); MEAN PLATELET VOLUME 10.2 fl (7.0-11.0); MONO # 0.7 (0.1-0.6); MONO % 9.9 % (1.0-6.0); RBC 3.23 10^6/uL (3.5-6.1); RED CELL DISTRIBUTION WIDTH 13.4 % (11.5-14.5); WHITE BLOOD COUNT 7.4 10^3/ul (4.5-11.0)
[2018-02-22 07:03] LABS: BARBITURATES, UR NEGATIVE (NEGATIVE); BENZODIAZEPINES, UR NEGATIVE (NEGATIVE); OPIATES, UR NEGATIVE (NEGATIVE); PHENCYCLIDINE, UR NEGATIVE (NEGATIVE)
[2018-02-22 07:18] LABS: ALB/GLOB RATIO 0.9 (1.1-1.8); ALBUMIN 2.7 g/dL (3.0-4.8); ALT/SGPT 47 U/L (7-56); AST/SGOT 53 U/L (14-36); BLOOD UREA NITROGEN 7 mg/dL (7-21); CALCIUM 7.5 mg/dL (8.4-10.5); GFR NON-AFRICAN AMERICAN > 60
[2018-02-22] MEDS ORDERED: Potassium Chloride 20 mEq ER Tab PO STA (07:32)
[2018-02-22] MEDS ORDERED: Sodium Chloride 0.9% 500 ML IV STA (07:39)
[2018-02-22] MEDS: cefTRIAXone 1 gm 1 GM/100 ML BAG IVPB SCH (10:33)
[2018-02-22] MEDS: guaiFENesin 200 mg/10 ml Syrup UD PO SCH ×3 (10:33→17:38)
[2018-02-22] MEDS: Sodium Chloride 0.9% 1,000 ML IV SCH (10:34)
--- NOTE | 2018-02-22 10:35 | PN ---
DATE: 02/22/2018 SUBJECTIVE: The patient is seen earlier today, in no acute distress, nontoxic. No fevers and chills. PHYSICAL EXAMINATION: VITAL SIGNS: On exam, temperature is 98, T-max yesterday was 101.7, although temperature is in the downward trend and the blood pressure is 94/56, respiratory rate of 20, heart rate of 93. HEENT: Examination of HEENT is unremarkable. NECK: Supple. LUNGS: Have decreased breath sounds. HEART: Normal S1, S2. ABDOMEN: Soft. LABORATORY DATA: Laboratory examination reveals the white count of 7.4, hemoglobin of 10, platelets of 201, BUN of 7, creatinine of 0.7. Urinalysis is noted. Influenza is negative. Blood cultures are negative. Urine cultures are negative. CAT scan of the abdomen and pelvis is negative. CAT scan of the chest is reported to be negative. The patient's HIV is pending. Strep antigen is pending. Influenza is also repeat one is pending. Urine for Legionella antigen has also been ordered, not collected. ASSESSMENT AND PLAN: A 62-year-old female with past medical history is noncontributory, who was admitted with hypotension, fever, tachycardia and severe sepsis from bilateral community-acquired pneumonia, on ceftriaxone and Zithromax. We will follow closely with you. We will change the Zithromax to p.o. Currently on ceftriaxone. We will check on the final culture results. The patient still looks washed out and etiology of this is not entirely clear. Jayson Lutz MD
[2018-02-22] MEDS: Azithromycin 500MG/NS 250ml 500 MG/250 ML BAG IVPB SCH (12:21)
--- NOTE | 2018-02-22 15:00 | CP.PCM.PN ---
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 Denied any chest pain or worsening cough. Remainder of 12 system ROS is negative Objective - Vital Signs/Intake and Output Vital Signs (last 24 hours): Temp Pulse Resp BP Pulse Ox 98.0 F 95 H 18 100/64 95 02/22/18 12:00 02/22/18 14:00 02/22/18 12:00 02/22/18 12:00 02/22/18 05:55 Intake and Output: 02/22/18 02/22/18 06:59 18:59 Intake Total 4510 Output Total 0 Balance 4510 - Medications Medications: Current Medications Acetaminophen (Tylenol 325mg Tab) 650 mg PO Q6H PRN PRN Reason: Fever >100.4 F Last Admin: 02/21/18 19:23 Dose: 650 mg Alprazolam (Xanax) 0.5 mg PO Q12H PRN; Protocol PRN Reason: Anxiety Last Admin: 02/22/18 13:58 Dose: 0.5 mg Diphenhydramine HCl (Benadryl) 25 mg PO HS PRN PRN Reason: Insomnia Last Admin: 02/21/18 21:20 Dose: 25 mg Guaifenesin (Robitussin) 200 mg PO TID NORMA Last Admin: 02/22/18 13:22 Dose: 200 mg Heparin Sodium (Porcine) (Heparin) 5,000 units SC Q8 [facility]; Protocol Last Admin: 02/22/18 13:22 Dose: 5,000 units Ceftriaxone Sodium (Rocephin 1 Gram Ivpb) 1 gm in 100 mls @ 100 mls/hr IVPB DAILY [facility]; Protocol Last Admin: 02/22/18 10:33 Dose: 100 mls/hr Azithromycin (Zithromax 500mg In Ns) 500 mg in 250 mls @ 167 mls/hr IVPB DAILY [facility]; Protocol Last Admin: 02/22/18 12:21 Dose: 167 mls/hr Pantoprazole Sodium (Protonix Ec Tab) 40 mg PO 0600 NORMA Last Admin: 02/22/18 05:27 Dose: 40 mg - Labs Labs: 02/22/18 05:30 02/22/18 05:30 PT 12.3 SECONDS (9.4-12.5) 02/20/18 19:55 INR 1.08 02/20/18 19:55 APTT 27.5 Seconds (25.1-36.5) 02/20/18 19:55 - Constitutional Appears: Well, Non-toxic, No Acute Distress - Head Exam Head Exam: ATRAUMATIC, NORMAL INSPECTION, NORMOCEPHALIC - Eye Exam Eye Exam: EOMI, Normal appearance, PERRL. absent: Scleral icterus - ENT Exam ENT Exam: Mucous Membranes Moist, Normal Exam - Respiratory Exam Respiratory Exam: Rales in RML/RLL and Left mid/lower lung hinojosa - Cardiovascular Exam Cardiovascular Exam: REGULAR RHYTHM, RRR, +S1, +S2. absent: Murmur - GI/Abdominal Exam GI & Abdominal Exam: Soft, Normal Bowel Sounds. absent: Tenderness Additional comments: No suprapubic tenderness presentation - Exam Exam: absent: Bladder Distension - Extremities Exam Extremities Exam: Normal Capillary Refill. absent: Pedal Edema, Tenderness - Neurological Exam Neurological Exam: Alert, Awake, CN II-XII Intact, Oriented x3 - Psychiatric Exam Psychiatric exam: Normal Affect, Normal Mood - Skin Skin Exam: Intact, Normal Color, Warm. absent: Dry Assessment and Plan - Assessment and Plan (Free Text) Assessment: 62F presented [place] [facility] w/ CC of F+Chills found to have Tmax 103, and Hr 111 admitted for workup/management of sepsis w/ fever of unknown origin. Patient is continued on broad spectrum antibiotics at this time; her symptoms are stable however does spike fevers at night. In setting of an elevated procal and questionable findings on CTAP we will consider the patient to have a PNA. Other sources are still not completely ruled out however they are likely. SEPSIS + Fever Unknown Origin; Etiology unknown - UTI vs PNA most likely; Abdominal Abscess less likely. Patient spiked a fever last night; with low blood pressure; however lactate was wnl; her wbcs are trending down, and she is known to be hypotensive. Denied any dizziness at the time; She was bolused 500ccs Her UA shows moderate bacteria w/ 2-5 leukocytes; her CXR and CT were officially read as normal; however there is some consolidative changes appreciated in bilateral lower lobes; her CTAP shows no abscess. We will c/w Rocephin and Azithromycin at this time. HIV negative, Urine AGs pending Blood urine sputum cx negative ID Dr. Lutz on board, appreciate reccs Cough- Dry Cough Most likely Viral? - Influenza AB negative Robitussin 200 mg PO TID GI DVT PPx Heparin 5000 SC q8 Protonix 40 mg PO Patient was seen, examined, and discussed w/ attending physician Dr. Harris. Willie Payton DO PGY1 Internal Medicine <Madison Harris - Last Filed: 02/23/18 15:13> Objective - Vital Signs/Intake and Output Vital Signs (last 24 hours): Temp Pulse Resp BP Pulse Ox 97.8 F 72 20 100/69 96 02/23/18 06:00 02/23/18 10:00 02/23/18 06:00 02/23/18 06:00 02/23/18 06:00 Intake and Output: 02/23/18 02/23/18 06:59 18:59 Intake Total 240 796 Balance 240 796 - Labs Labs: 02/23/18 06:30 02/23/18 06:30 PT 12.3 SECONDS (9.4-12.5) 02/20/18 19:55 INR 1.08 02/20/18 19:55 APTT 27.5 Seconds (25.1-36.5) 02/20/18 19:55 Attending/Attestation - Attestation I have personally seen and examined this patient.: Yes I have fully participated in the care of the patient.: Yes I have reviewed all pertinent clinical information, including history, physical exam and plan: Yes Notes (Text): 02/23/18 15:11 Attending note; Patient is examined with resident. Patient is alert and awake. Currently afebrile and nontoxic. Complaining of mild cough. Tolerating diet well. Patient is a 62-year-old female with no significant past medical history is admitted with fevers and chills. Patient is complaining of generalized malaise and cough. Patient works in the [employer] system. Rapid flu is negative. Chest x-rays negative. Chest CT showed bibasilar atelectasis. No significant consolidation. CT abdomen and pelvis is negative. Started on IV levofloxacin. Blood culture is negative. Urine culture is negative. MRSA is negative. ID evaluation appreciated. HIV, Legionella negative. Patient will be referred to [facility] [place] upon discharge. 02/23/18 15:13
[2018-02-22 16:56] VITALS: RESP 20
[2018-02-22] MEDS: DiphenhydrAMINE 12.5 mg/5 ml LIQ UD (5 ml) PO PRN (23:58)
[2018-02-23] MEDS: Pantoprazole 40 mg EC Tab PO SCH (05:22)
[2018-02-23 06:10] VITALS: BP 100/69; TEMP 97.8; O2SAT 96
[2018-02-23 07:07] LABS: BASO # 0.02 K/mm3 (0.0-2.0); BASO % 0.3 % (0.0-3.0); EOS # 0.1 (0.0-0.7); EOS % 1.3 % (1.5-5.0); GRAN # 4.05 (1.4-6.5); GRAN % 67.5 % (50.0-68.0); HEMOGLOBIN 10.1 g/dL (12.0-16.0); LYMPH # 1.3 (1.2-3.4); LYMPH % 21.6 % (22.0-35.0); MEAN CELL VOLUME 91.7 fl (80.0-105.0); MEAN CORPUSCULAR HEMOGLOBIN 31.1 pg (25.0-35.0); MEAN CORPUSCULAR HGB CONC 33.9 g/dl (31.0-37.0); MEAN PLATELET VOLUME 9.6 fl (7.0-11.0); MONO # 0.6 (0.1-0.6); MONO % 9.3 % (1.0-6.0); RBC 3.25 10^6/uL (3.5-6.1); RED CELL DISTRIBUTION WIDTH 13.6 % (11.5-14.5)
[2018-02-23 07:09] LABS: ALBUMIN 2.8 g/dL (3.0-4.8); BLOOD UREA NITROGEN 6 mg/dL (7-21); CALCIUM 8.5 mg/dL (8.4-10.5); GFR NON-AFRICAN AMERICAN > 60
[2018-02-23 07:10] LABS: ALB/GLOB RATIO 0.9 (1.1-1.8); ALT/SGPT 47 U/L (7-56); AST/SGOT 45 U/L (14-36)
[2018-02-23] MEDS: guaiFENesin 200 mg/10 ml Syrup UD PO SCH (09:41)
[2018-02-23] MEDS ORDERED: levoFLOXacin 500 MG TAB PO SCH (10:00)
[2018-02-23 10:39] VITALS: PULSE 72
--- NOTE | 2018-02-23 12:45 | CP.PCM.DIS ---
<FitoWillie - Last Filed: 02/24/18 17:52> Provider - Provider Date of Admission: 02/20/18 20:52 Attending physician: Madison Harris MD Primary care physician: ARMAAN PRIMARY CARE PROVIDER Consults: Infectious Disease - [place] Time Spent in preparation of Discharge (in minutes): 45 Diagnosis - Discharge Diagnosis (1) Sepsis Status: Acute (2) Fever, unknown origin Status: Acute (3) Cough Status: Acute (4) Pneumonia Status: Acute Hospital Course - Lab Results Lab Results: Micro Results 02/21/18 23:12 Naris MRSA Culture (Admit) - Final MRSA NOT DETECTED 02/20/18 19:55 Blood Blood Culture - Preliminary NO GROWTH AFTER 48 HOURS 02/20/18 19:30 Blood Blood Culture - Preliminary NO GROWTH AFTER 48 HOURS 02/21/18 19:40 Blood Blood Culture - Preliminary NO GROWTH AFTER 24 HOURS 02/21/18 19:15 Blood Blood Culture - Preliminary NO GROWTH AFTER 24 HOURS 02/20/18 23:10 Urine Urine Culture - Final No Growth (<1,000 CFU/ML) Most Recent Lab Values WBC 6.0 10^3/ul (4.5-11.0) 02/23/18 06:30 RBC 3.25 10^6/uL (3.5-6.1) L 02/23/18 06:30 Hgb 10.1 g/dL (12.0-16.0) L 02/23/18 06:30 Hct 29.8 % (36.0-48.0) L 02/23/18 06:30 MCV 91.7 fl (80.0-105.0) 02/23/18 06:30 MCH 31.1 pg (25.0-35.0) 02/23/18 06:30 MCHC 33.9 g/dl (31.0-37.0) 02/23/18 06:30 RDW 13.6 % (11.5-14.5) 02/23/18 06:30 Plt Count 237 10^3/uL (120.0-450.0) 02/23/18 06:30 MPV 9.6 fl (7.0-11.0) 02/23/18 06:30 Gran % 67.5 % (50.0-68.0) 02/23/18 06:30 Lymph % (Auto) 21.6 % (22.0-35.0) L 02/23/18 06:30 [place] % (Auto) 9.3 % (1.0-6.0) H 02/23/18 06:30 Eos % (Auto) 1.3 % (1.5-5.0) L 02/23/18 06:30 Baso % (Auto) 0.3 % (0.0-3.0) 02/23/18 06:30 Gran # 4.05 (1.4-6.5) 02/23/18 06:30 Lymph # (Auto) 1.3 (1.2-3.4) 02/23/18 06:30 [place] # (Auto) 0.6 (0.1-0.6) 02/23/18 06:30 Eos # (Auto) 0.1 (0.0-0.7) 02/23/18 06:30 Baso # (Auto) 0.02 K/mm3 (0.0-2.0) 02/23/18 06:30 Neutrophils % (Manual) 82 % (50.0-70.0) H 02/20/18 19:55 Band Neutrophils % 3 % (0-2) H 02/20/18 19:55 Lymphocytes % (Manual) 6 % (22.0-35.0) L 02/20/18 19:55 Monocytes % (Manual) 9 % (1.0-6.0) H 02/20/18 19:55 Platelet Evaluation Normal (NORMAL) 02/20/18 19:55 Tear Drop Cells Slight 02/20/18 19:55 PT 12.3 SECONDS (9.4-12.5) 02/20/18 19:55 INR 1.08 02/20/18 19:55 APTT 27.5 Seconds (25.1-36.5) 02/20/18 19:55 pO2 31 mm/Hg (30-55) 02/21/18 23:30 VBG pH 7.37 (7.32-7.43) 02/21/18 23:30 VBG pCO2 41.0 (40-60) 02/21/18 23:30 VBG HCO3 23.7 mmol/l (21-28) 02/21/18 23:30 VBG Total CO2 25.0 mmol.L (22-28) 02/21/18 23:30 VBG O2 Sat (Calc) 65.1 % (40-65) H 02/21/18 23:30 VBG Base Excess -1.5 mmol/L (0.0-2.0) L 02/21/18 23:30 VBG Potassium 3.7 mmol/L (3.6-5.2) 02/21/18 23:30 Sodium 138.0 mmol/L (132-148) 02/21/18 23:30 Chloride 113.0 mmol/L (98-107) H 02/21/18 23:30 Glucose 107 mg/dl (65-105) H 02/21/18 23:30 Lactate 0.9 mmol/L (0.7-2.1) 02/21/18 23:30 FiO2 21.0 % 02/21/18 23:30 Sodium 140 mmol/L (132-148) 02/23/18 06:30 Potassium 3.8 mmol/L (3.6-5.0) 02/23/18 06:30 Chloride 110 mmol/L (98-107) H 02/23/18 06:30 Carbon Dioxide 26 mmol/L (21-33) 02/23/18 06:30 Anion Gap 8 (10-20) L 02/23/18 06:30 BUN 6 mg/dL (7-21) L 02/23/18 06:30 Creatinine 0.7 mg/dl (0.7-1.2) 02/23/18 06:30 Est GFR ( Amer) > 60 02/23/18 06:30 Est GFR (Non-Af Amer) > 60 02/23/18 06:30 Random Glucose 107 mg/dL (70-110) 02/23/18 06:30 Hemoglobin A1c 5.5 % (4.2-6.5) 02/21/18 06:00 Calcium 8.5 mg/dL (8.4-10.5) 02/23/18 06:30 Phosphorus 3.0 mg/dL (2.5-4.5) 02/23/18 06:30 Magnesium 2.2 mg/dL (1.7-2.2) 02/23/18 06:30 Total Bilirubin 0.4 mg/dL (0.2-1.3) 02/23/18 06:30 AST 45 U/L (14-36) H 02/23/18 06:30 ALT 47 U/L (7-56) 02/23/18 06:30 Alkaline Phosphatase 90 U/L (38-126) 02/23/18 06:30 Troponin I < 0.01 ng/mL 02/20/18 19:55 Total Protein 5.8 g/dL (5.8-8.3) 02/23/18 06:30 Albumin 2.8 g/dL (3.0-4.8) L 02/23/18 06:30 Globulin 3.0 gm/dL 02/23/18 06:30 Albumin/Globulin Ratio 0.9 (1.1-1.8) L 02/23/18 06:30 Procalcitonin 2.39 NG/ML (0.19-0.49) H 02/20/18 19:55 TSH 3rd Generation 0.94 mIU/mL (0.46-4.68) 02/21/18 05:30 Venous Blood Potassium 3.7 mmol/L (3.6-5.2) 02/21/18 23:30 Urine Color Light yellow (YELLOW) 02/20/18 19:31 Urine Appearance Slight-cloudy (CLEAR) 02/20/18 19:31 Urine pH 6.0 (4.7-8.0) 02/20/18 19:31 Ur Specific [place] 1.020 (1.005-1.035) 02/20/18 19:31 Urine Protein 100 mg/dL (<30 mg/dL) H 02/20/18 19:31 Urine Glucose (UA) Negative mg/dL (NEGATIVE) 02/20/18 19:31 Urine Ketones Trace mg/dL (NEGATIVE) H 02/20/18 19:31 Urine Blood Moderate (NEGATIVE) H 02/20/18 19:31 Urine Nitrate Positive (NEGATIVE) H 02/20/18 19: Urine Bilirubin Negative (NEGATIVE) 02/20/18 19: Urine Urobilinogen 0.2 E.U./dL (<1 E.U./dL) 02/20/18 19:31 Ur Leukocyte Esterase Small Laila/uL (NEGATIVE) H 02/20/18 19: Urine RBC 1 - 3 /hpf (0-2) 10/16/18 19:31 Urine WBC 2 - 5 /hpf (0-6) 02/20/18 19:31 Ur Epithelial Cells 0 - 2 /hpf (0-5) 02/20/18 19:31 Urine Bacteria Mod (NEG) 02/20/18 19:31 Urine Opiates Screen Negative (NEGATIVE) 02/22/18 05:10 Urine Methadone Screen Negative (NEGATIVE) 02/22/18 05:10 Ur Barbiturates Screen Negative (NEGATIVE) 02/22/18 05:10 Ur Phencyclidine Scrn Negative (NEGATIVE) 02/22/18 05:10 Ur Amphetamines Screen Negative (NEGATIVE) 02/22/18 05:10 U Benzodiazepines Scrn Negative (NEGATIVE) 02/22/18 05:10 U Oth Cocaine Metabols Negative (NEGATIVE) 02/22/18 05:10 U Cannabinoids Screen Negative (NEGATIVE) 02/22/18 05:10 HIV 1&2 Ag/Ab, 4th Gen Nonreactive (Nonreactive) 02/21/18 06:00 Influenza Typ A,B (EIA) Negative for flu a/b (NEGATIVE) 02/21/18 00:57 Ur L.pneumophila Ag Negative (NEGATIVE) 02/22/18 13:50 - Hospital Course Hospital Course: Willie Payton DO PGY1 - Internal Medicine [employer] - Hospital DC Summary 62 year old female with PMHx significant for bout of pneumonia 15 years ago at another institution (patient unaware of etiology or treatment at the time) who presents with 3 days of paroxysmal fevers. Patient reports that she has had recurring fevers along with chills since Monday evening and has taken Advil which has helped for a short period of time. Patient also reports associated headache and cough with clear phlegm production at times. Patient denies having received flu shot. Had one episode of bilious vomiting over the weekend that has not returned. Patient denies vision changes but states that she has felt unsteady while ambulating since Monday along with a poor appetite. Patient states she typically has hypotension and thought these symptoms could have been related, thereby delaying her visit to the ED. Patient was started on Rocephin, azithromycin, and IVF. Her wbc count trended downward during hospital course; she tested negative for HIV, strep pna, and legionella. She was intermittently spiking fevers throughout her hospital course; at one point fever was accompanied by low BP. Patient was subsequently bolused 500cc IVF. CT Chest was read as negative; however did show some component of atelectasis. Crackles were heard on exam at one point during course so echo ordered; she was found to have an EF of 70% w/o any noted dysfucntion. Blood urine and sputum cultures have been negative to date. Patient was changed to PO Abx prior to discharge; and PT eval revealed she was ambulating well and was to be DC home w/o services. She was seen and examined morning prior to discharge; Reported her complaints of cough was same however was afebrile overnight and had no c/o SOB. Denied any chest pain abd pain n/v/d/c. Medications were reconciled, and patient was given the following discharge instructions: Please follow up with your primary care doctor at the [facility] on Monday March 05, 2018 at 3:30pm. Please discuss all medical issues addressed during your admission. Please arrive 15min prior to your appointment time; if you arrive more than 15 minutes late to your appointment; your appointment will be cancelled and you will be required to reschedule. You have been prescribed a five day course of an antibiotic called Levaquin. You will take a 500mg tablet once a day for five days. Please do not exert yourself with walking or exercise until you are feeling up to those tasks. You may take over the counter Robitussin for your cough NEEDED. Please adhere to the dosing recommendations on the bottle. If you have any questions about this, please ask your pharmacist. If your symptoms return, please seek emergency medical attention immediately. ---- Patient is medically optimized for discharge at this time - Date & Time of H&P Date of H&P: 02/20/18 Time of H&P: 20:41 Discharge Exam - Head Exam Head Exam: ATRAUMATIC, NORMAL INSPECTION, NORMOCEPHALIC - Eye Exam Eye Exam: EOMI, Normal appearance, PERRL - Respiratory Exam Respiratory Exam: Rales, NORMAL BREATHING PATTERN. absent: Wheezes, Respiratory Distress, Stridor - Cardiovascular Exam Cardiovascular Exam: REGULAR RHYTHM, RRR, +S1, +S2 - GI/Abdominal Exam GI & Abdominal Exam: Normal Bowel Sounds, Soft, Unremarkable. absent: Tenderness - Neurological Exam Neurological exam: Alert, CN II-XII Intact, Oriented x3 - Psychiatric Exam Psychiatric exam: Normal Affect, Normal Mood - Skin Skin Exam: Dry, Intact, Normal Color, Warm Discharge Plan - Discharge Medications Prescriptions: levoFLOXacin [Levaquin] 500 mg PO DAILY #5 tab - Follow Up Plan Condition: GOOD Disposition: HOME/ ROUTINE Instructions: Pneumonia in Adults, Sepsis in Adults, Heart Healthy Diet Additional Instructions: Please follow up with your primary care doctor at the [facility] on Monday March 05, 2018 at 3:30pm. Please discuss all medical issues addressed during your admission. Please arrive 15min prior to your appointment time; if you arrive more than 15 minutes late to your appointment; your appointment will be cancelled and you will be required to reschedule. You have been prescribed a five day course of an antibiotic called Levaquin. You will take a 500mg tablet once a day for five days. Please do not exert yourself with walking or exercise until you are feeling up to those tasks. You may take over the counter Robitussin for your cough NEEDED. Please adhere to the dosing recommendations on the bottle. If you have any questions about this, please ask your pharmacist. If your symptoms return, please seek emergency medical attention immediately. Referrals: [facility] at [facility] [Outside] <Madison Harris - Last Filed: 02/25/18 10:23> Provider - Provider Date of Admission: 02/20/18 20:52 Attending physician: Madison Harris MD Primary care physician: NO PRIMARY CARE PROVIDER Hospital Course - Lab Results Lab Results: Micro Results 02/20/18 19:55 Blood Blood Culture - Preliminary NO GROWTH AFTER 4 DAYS 02/20/18 19:30 Blood Blood Culture - Preliminary NO GROWTH AFTER 4 DAYS 02/21/18 19:40 Blood Blood Culture - Preliminary NO GROWTH AFTER 3 DAYS 02/21/18 19:15 Blood Blood Culture - Preliminary NO GROWTH AFTER 3 DAYS 02/21/18 23:12 Naris MRSA Culture (Admit) - Final MRSA NOT DETECTED 02/20/18 23:10 Urine Urine Culture - Final No Growth (<1,000 CFU/ML) Most Recent Lab Values WBC 6.0 10^3/ul (4.5-11.0) 02/23/18 06:30 RBC 3.25 10^6/uL (3.5-6.1) L 02/23/18 06:30 Hgb 10.1 g/dL (12.0-16.0) L 02/23/18 06:30 Hct 29.8 % (36.0-48.0) L 02/23/18 06:30 MCV 91.7 fl (80.0-105.0) 02/23/18 06:30 MCH 31.1 pg (25.0-35.0) 02/23/18 06:30 MCHC 33.9 g/dl (31.0-37.0) 02/23/18 06:30 RDW 13.6 % (11.5-14.5) 02/23/18 06:30 Plt Count 237 10^3/uL (120.0-450.0) 02/23/18 06:30 MPV 9.6 fl (7.0-11.0) 02/23/18 06:30 Gran % 67.5 % (50.0-68.0) 02/23/18 06:30 Lymph % (Auto) 21.6 % (22.0-35.0) L 02/23/18 06:30 [place] % (Auto) 9.3 % (1.0-6.0) H 02/23/18 06:30 Eos % (Auto) 1.3 % (1.5-5.0) L 02/23/18 06:30 Baso % (Auto) 0.3 % (0.0-3.0) 02/23/18 06:30 Gran # 4.05 (1.4-6.5) 02/23/18 06:30 Lymph # (Auto) 1.3 (1.2-3.4) 02/23/18 06:30 [place] # (Auto) 0.6 (0.1-0.6) 02/23/18 06:30 Eos # (Auto) 0.1 (0.0-0.7) 02/23/18 06:30 Baso # (Auto) 0.02 K/mm3 (0.0-2.0) 02/23/18 06:30 Neutrophils % (Manual) 82 % (50.0-70.0) H 02/20/18 19:55 Band Neutrophils % 3 % (0-2) H 02/20/18 19:55 Lymphocytes % (Manual) 6 % (22.0-35.0) L 02/20/18 19:55 Monocytes % (Manual) 9 % (1.0-6.0) H 02/20/18 19:55 Platelet Evaluation Normal (NORMAL) 02/20/18 19:55 Tear Drop Cells Slight 02/20/18 19:55 PT 12.3 SECONDS (9.4-12.5) 02/20/18 19:55 INR 1.08 02/20/18 19:55 APTT 27.5 Seconds (25.1-36.5) 02/20/18 19:55 pO2 31 mm/Hg (30-55) 02/21/18 23:30 VBG pH 7.37 (7.32-7.43) 02/21/18 23:30 VBG pCO2 41.0 (40-60) 02/21/18 23:30 VBG HCO3 23.7 mmol/l (21-28) 02/21/18 23:30 VBG Total CO2 25.0 mmol.L (22-28) 02/21/18 23:30 VBG O2 Sat (Calc) 65.1 % (40-65) H 02/21/18 23:30 VBG Base Excess -1.5 mmol/L (0.0-2.0) L 02/21/18 23:30 VBG Potassium 3.7 mmol/L (3.6-5.2) 02/21/18 23:30 Sodium 138.0 mmol/L (132-148) 02/21/18 23:30 Chloride 113.0 mmol/L (98-107) H 02/21/18 23:30 Glucose 107 mg/dl (65-105) H 02/21/18 23:30 Lactate 0.9 mmol/L (0.7-2.1) 02/21/18 23:30 FiO2 21.0 % 02/21/18 23:30 Sodium 140 mmol/L (132-148) 02/23/18 06:30 Potassium 3.8 mmol/L (3.6-5.0) 02/23/18 06:30 Chloride 110 mmol/L (98-107) H 02/23/18 06:30 Carbon Dioxide 26 mmol/L (21-33) 02/23/18 06:30 Anion Gap 8 (10-20) L 02/23/18 06:30 BUN 6 mg/dL (7-21) L 02/23/18 06:30 Creatinine 0.7 mg/dl (0.7-1.2) 02/23/18 06:30 Est GFR ( Amer) > 60 02/23/18 06:30 Est GFR (Non-Af Amer) > 60 02/23/18 06:30 Random Glucose 107 mg/dL (70-110) 02/23/18 06:30 Hemoglobin A1c 5.5 % (4.2-6.5) 02/21/18 06:00 Calcium 8.5 mg/dL (8.4-10.5) 02/23/18 06:30 Phosphorus 3.0 mg/dL (2.5-4.5) 02/23/18 06:30 Magnesium 2.2 mg/dL (1.7-2.2) 02/23/18 06:30 Total Bilirubin 0.4 mg/dL (0.2-1.3) 02/23/18 06:30 AST 45 U/L (14-36) H 02/23/18 06:30 ALT 47 U/L (7-56) 02/23/18 06:30 Alkaline Phosphatase 90 U/L (38-126) 02/23/18 06:30 Troponin I < 0.01 ng/mL 02/20/18 19:55 Total Protein 5.8 g/dL (5.8-8.3) 02/23/18 06:30 Albumin 2.8 g/dL (3.0-4.8) L 02/23/18 06:30 Globulin 3.0 gm/dL 02/23/18 06:30 Albumin/Globulin Ratio 0.9 (1.1-1.8) L 02/23/18 06:30 Procalcitonin 2.39 NG/ML (0.19-0.49) H 02/20/18 19:55 TSH 3rd Generation 0.94 mIU/mL (0.46-4.68) 02/21/18 05:30 Venous Blood Potassium 3.7 mmol/L (3.6-5.2) 02/21/18 23:30 Urine Color Light yellow (YELLOW) 02/20/18 19:31 Urine Appearance Slight-cloudy (CLEAR) 02/20/18 19:31 Urine pH 6.0 (4.7-8.0) 02/20/18 19:31 Ur Specific [place] 1.020 (1.005-1.035) 02/20/18 19:31 Urine Protein 100 mg/dL (<30 mg/dL) H 02/20/18 19:31 Urine Glucose (UA) Negative mg/dL (NEGATIVE) 02/20/18 19:31 Urine Ketones Trace mg/dL (NEGATIVE) H 02/20/18 19:31 Urine Blood Moderate (NEGATIVE) H 02/20/18 19:31 Urine Nitrate Positive (NEGATIVE) H 02/20/18 19:31 Urine Bilirubin Negative (NEGATIVE) 02/20/18 19:31 Urine Urobilinogen 0.2 E.U./dL (<1 E.U./dL) 02/20/18 19:31 Ur Leukocyte Esterase Small Laila/uL (NEGATIVE) H 02/20/18 19:31 Urine RBC 1 - 3 /hpf (0-2) 02/20/18 19:31 Urine WBC 2 - 5 /hpf (0-6) 02/20/18 19:31 Ur Epithelial Cells 0 - 2 /hpf (0-5) 02/20/18 19:31 Urine Bacteria Mod (NEG) 02/20/18 19:31 Urine Opiates Screen Negative (NEGATIVE) 02/22/18 05:10 Urine Methadone Screen Negative (NEGATIVE) 02/22/18 05:10 Ur Barbiturates Screen Negative (NEGATIVE) 02/22/18 05:10 Ur Phencyclidine Scrn Negative (NEGATIVE) 02/22/18 05:10 Ur Amphetamines Screen Negative (NEGATIVE) 02/22/18 05:10 U Benzodiazepines Scrn Negative (NEGATIVE) 02/22/18 05:10 U Oth Cocaine Metabols Negative (NEGATIVE) 02/22/18 05:10 U Cannabinoids Screen Negative (NEGATIVE) 02/22/18 05:10 HIV 1&2 Ag/Ab, 4th Gen Nonreactive (Nonreactive) 02/21/18 06:00 Influenza Typ A,B (EIA) Negative for flu a/b (NEGATIVE) 02/21/18 00:57 Influenza Type A Ab 1:8 titer (<1:8) H 02/21/18 05:00 Influenza Type B Ab <1:8 titer (<1:8) 02/21/18 05:00 Ur L.pneumophila Ag Negative (NEGATIVE) 02/22/18 13:50 Mycoplasma pneumon IgM 85 U/mL (<770) 02/21/18 05:00 Ur Strep pneumoniae Ag Not detected (Not Detected) 02/20/18 23:10 Attending/Attestation - Attestation I have personally seen and examined this patient.: Yes I have fully participated in the care of the patient.: Yes I have reviewed all pertinent clinical information, including history, physical exam and plan: Yes Notes (Text): 02/25/18 10:17 Attending note; Patient is examined with resident. Patient is alert and awake. Currently afebrile and nontoxic. Complaining of mild cough. improved significantly. Tolerating diet well. Patient is a 62-year-old female with no significant past medical history is admitted with fevers and chills. Patient is complaining of generalized malaise and cough. Rapid flu is negative. Chest x-rays negative. Chest CT showed bibasilar atelectasis. No significant consolidation. CT abdomen and pelvis is negative. Treated with IV levofloxacin. Blood culture is negative. Urine culture is negative. MRSA is negative. ID evaluation appreciated. HIV, Legionella negative. Patient is clinically improved. Discharge home with po levofloxacin. Patient will be referred to [facility] clinic upon discharge. follow up appointment given for March 05.
--- NOTE | 2018-02-23 15:43 | CARD ---
APPROVED REPORT Date of service: 02/23/2018 EXAM: Two-dimensional and M-mode echocardiogram with Doppler and color Doppler. INDICATION Dyspnea Hypertension/HCVD 2D DIMENSIONS Left Atrium (2D)3.5 (1.6-4.0cm)IVSd1.0 (0.7-1.1cm) LVDd4.1 (3.9-5.9cm)PWd1.4 (0.7-1.1cm) LVDs2.5 (2.5-4.0cm)FS (%) 39.4 % LVEF (%)70.3 (>50%) M-Mode DIMENSIONS Aortic Root2.60 (2.2-3.7cm)Aortic Cusp Exc.2.00 (1.5-2.0cm) Aortic Valve AoV Peak Djwosjgx243.0cm/Georgie Peak GR.10mmHg Mitral Valve MV E Itglzdmj77.5cm/sMV A Bdddmvql29.6cm/sE/A ratio1.3 TDI E/Lateral E'0.0E/Medial E'0.0 Tricuspid Valve TR Peak [id number]/sRAP [id number] Peak Gr.24mmHg [id number] LEFT VENTRICLE The left ventricle is normal size. There is normal left ventricular wall thickness. The left ventricular function is normal. The left ventricular ejection fraction is within the normal range. There is normal LV segmental wall motion. The left ventricular diastolic function is normal. RIGHT VENTRICLE The right ventricle is normal size. There is normal right ventricular wall thickness. The right ventricular systolic function is normal. ATRIA The left atrium size is normal. The right atrium size is normal. AORTIC VALVE The aortic valve is normal in structure. No aortic regurgitation is present. There is no aortic valvular stenosis. MITRAL VALVE The mitral valve is mildly thickened. Mitral regurgitation is trace. There is no mitral valve stenosis. TRICUSPID VALVE The tricuspid valve is normal in structure. There is mild tricuspid regurgitation. There is mild pulmonary hypertension. PULMONIC VALVE The pulmonary valve is normal in structure. There is no pulmonic valvular regurgitation. GREAT VESSELS The aortic root is normal in size. The IVC is normal in size and collapses >50% with inspiration. <Conclusion> The left ventricle is normal size. There is normal left ventricular wall thickness. The left ventricular function is normal. The left ventricular ejection fraction is within the normal range. There is normal LV segmental wall motion. The left ventricular diastolic function is normal. There is mild tricuspid regurgitation. There is mild pulmonary hypertension.
--- NOTE | 2018-02-23 18:01 | PN ---
DATE: 02/23/2018 SUBJECTIVE: The patient is in bed, in no acute distress, nontoxic. PHYSICAL EXAMINATION: VITAL SIGNS: Temperature is 97, blood pressure is 100/60, respiratory rate of 16. HEENT: Unremarkable. NECK: Supple. LUNGS: Have decreased breath sounds. HEART: Normal S1 and S2. ABDOMINAL: Soft, nontender. LABORATORY EXAMINATION: Reveals a white count of 6, hemoglobin of 10, platelets of 237. Chemistries are noted and procalcitonin is 2.39. Urinalysis is noted. Toxicology is noted. Serology is noted. Microbiology is reviewed. Echo is noted. ASSESSMENT AND PLAN: A 62-year-old female with no significant past medical history. She was seen early this morning. Admitted with hypotension, fever, tachycardia with severe sepsis, bilateral community-acquired pneumonia on ceftriaxone, Zithromax and then switched to p.o. Levaquin. Followed radiologically. Follow up with primary and with Pulmonary. Case discussed with PMD. We will follow with you. Jayson Lutz MD
== END 2018-02-23 14:28 | disposition home or self-care (01) | DRG 871 ==
LOC: ED 15:44 → ERH 20:52 → 2RNO 02-21 01:11
PROVIDERS: ADMIT Internal Medicine; ATTEND Internal Medicine
DX: A41.9 Sepsis, unspecified organism (principal); J18.9 Pneumonia, unspecified organism; R65.20 Severe sepsis without septic shock; I95.9 Hypotension, unspecified; Z80.0 Family history of malignant neoplasm of digestive organs; Z82.0 Family history of epilepsy and other diseases of the nervous system; Z87.01 Personal history of pneumonia (recurrent)

== ENCOUNTER 2018-08-20 14:25 | Emergency (ER) | payer OTHER ==
[2018-08-20 14:28] VITALS: BMI 19.8
--- NOTE | 2018-08-20 14:55 | ED PDOC ---
Arrival/HPI - General Historian: Patient - History of Present Illness Narrative History of Present Illness (Text): 08/20/18 14:52 63 y/o female, pmh including hld, post menopausal, c/o pink eye started this morning. Pt. stated that she went to sleep last night with rt. eye redness and woke up with left eye redness, crustiness discharge, no pain, no change in vision, no headache/neck/back pain, had an episode of itching on both eye, no night sweat, no dizziness, no change in vision, no numbness or tingling, no other medical or psychological complaints. Past Medical History - Provider Review Nursing Documentation Reviewed: Yes - Infectious Disease Hx of Infectious Diseases: None - Musculoskeletal/Rheumatological Hx Falls: No - Psychiatric Hx Substance Use: No - Surgical History Hx Cataract Extraction: Yes Family/Social History - Physician Review Nursing Documentation Reviewed: Yes Family/Social History: Unknown Family HX Smoking Status: Never Smoked Hx Alcohol Use: Yes (Ocassional) Hx Substance Use: No Allergies/Home Meds Allergies/Adverse Reactions: Allergies No Known Allergies Allergy (Verified 08/20/18 14:58) Home Medications: Home Meds Medication Instructions Recorded Confirmed Atorvastatin [Lipitor] 10 mg PO DAILY 08/20/18 08/20/18 Review of Systems - Review of Systems Constitutional: absent: Fatigue, Fevers Eyes: Other (eye redness). absent: Vision Changes ENT: absent: Hearing Changes Respiratory: absent: SOB, Cough Cardiovascular: absent: Chest Pain Gastrointestinal: absent: Abdominal Pain, Diarrhea, Nausea, Vomiting Musculoskeletal: absent: Arthralgias, Back Pain Skin: absent: Rash, Pruritis Neurological: absent: Headache, Dizziness Psychiatric: absent: Anxiety, Depression, Suicidal Ideation Physical Exam - Systems Exam Head: Present: Atraumatic, Normocephalic Pupils: Present: PERRL, Other (+bilateral conjunctivitis, no periorbital swelling, no painful movement of the eye. ) Extroacular Muscles: Present: EOMI Conjunctiva: Present: Normal Ears: Present: NORMAL TM, Normal Canal. No: Erythema Mouth: Present: Moist Mucous Membranes Pharnyx: No: ERYTHEMA, EXUDATE, TONSILS ENLARGED Nose (External): Present: Atraumatic. No: Abrasion, Contusion, Laceration, Lesions Nose (Internal): Present: Normal Inspection, No Active Bleeding. No: Rhinorrhea, Septal Hematoma, Epistaxis Neck: Present: Normal Range of Motion Respiratory/Chest: Present: Clear to Auscultation, Good Air Exchange. No: Respiratory Distress, Accessory Muscle Use Cardiovascular: Present: Regular Rate and Rhythm, Normal S1, S2. No: Murmurs Abdomen: No: Tenderness, Distention, Peritoneal Signs, Rebound, Guarding Back: Present: Normal Inspection. No: CVA Tenderness, Midline Tenderness, Paraspinal Tenderness, Pain with Leg Raise, Decubitus Ulcer Upper Extremity: Present: Normal Inspection, Normal ROM, NORMAL PULSES, Neurovascularly Intact, Capillary Refill < 2s. No: Cyanosis, Edema, Deformity Lower Extremity: Present: Normal Inspection, NORMAL PULSES, Normal ROM, Neurovascularly Intact, Capillary Refill < 2 s. No: Edema, Deformity Neurological: Present: GCS=15, CN II-XII Intact, Speech Normal, Motor Func Grossly Intact, Normal Cerebellar Funct, Gait Normal, Memory Normal Skin: Present: Warm, Dry, Normal Color. No: Rashes Psychiatric: Present: Alert, Oriented x 3, Normal Insight, Normal Concentration Medical Decision Making ED Course and Treatment: 08/20/18 14:54 -Discharge home with claritin, ciloxin, avoid rubbing or touching the eyes, no eye make ups until symptoms resolved and clear by the pmd and/or opthalmologist, see your own pmd and opthalmologist within2 days, return to the ER for any new or worsening signs ro symptoms. - PA / REFRIGERATOR CRATER / Resident Statement MD/DO has reviewed & agrees with the documentation as recorded. Disposition/Present on Arrival - Present on Arrival Any Indicators Present on Arrival: No History of DVT/PE: No History of Uncontrolled Diabetes: No Urinary Catheter: No History of Decub. Ulcer: No History Surgical Site Infection Following: None - Disposition Have Diagnosis and Disposition been Completed?: Yes Diagnosis: Conjunctivitis Disposition: HOME/ ROUTINE Disposition Time: 14:55 Patient Plan: Discharge Condition: GOOD Additional Instructions: -Discharge home with claritin, ciloxin, avoid rubbing or touching the eyes, no eye make ups until symptoms resolved and clear by the pmd and/or opthalmologist, see your own pmd and opthalmologist within2 days, return to the ER for any new or worsening signs ro symptoms. Referrals: Aidan Alanis MD [Staff Provider] - Follow up with primary Forms: WORK NOTE
[2018-08-20] MEDS ORDERED: Ciprofloxacin 0.3% OPTH SOLN OU STA (15:03)
[2018-08-20 15:19] VITALS: BP 110/75; PULSE 90; RESP 19; TEMP 98; O2SAT 100
== END 2018-08-20 15:37 | disposition home or self-care (01) ==
LOC: ED 14:25
DX: H10.9 Unspecified conjunctivitis (principal)